=== PATIENT | male | born 1945 | race Caucasian/White ===

== ENCOUNTER → 2017-12-18 | Outpatient (CLI) | payer MEDICARE ==
--- NOTE | 2017-12-18 13:02 | DIREP ---
PROCEDURE:MRI SPINE LUMBAR W/O COMPARISON:[facility], [place], XRAY SPINE LUMBAR 2-3 VWS, 12/11/2017, 03:10 AM. INDICATIONS:M54.17 RADICULOPATHY TECHNIQUE:A comprehensive examination was performed utilizing a variety of imaging planes and imaging parameters to optimize visualization of suspected pathology. Images were performed without intravenous gadolinium contrast. FINDINGS: ALIGNMENT:Normal. VERTEBRA:No fracture, pars defect, or osseous lesion. CORD/CAUDA EQUINA:Normal size, contour, and signal intensity. PARASPINAL AREA:Normal with no visible mass. OTHER:None. LUMBAR DISC LEVELS T12-L1:No significant disc/facet abnormality, spinal stenosis, or foraminal stenosis. L1-L2:No significant disc/facet abnormality, spinal stenosis, or foraminal stenosis. L2-L3:Minimal dorsal bulge, facet arthropathy and thickened ligamentum flavum. No significant spinal stenosis. Minimal foraminal stenosis. L3-L4:Moderate facet arthropathy. Thickened ligamentum flavum. Dorsal bulge. Mild foraminal and spinal stenosis. L4-L5:Severe facet arthropathy. Mild facet joint fluid. Thickened ligamentum flavum. Dorsal bulge. Severe bilateral foraminal stenosis and moderate to severe canal stenosis. L5-S1:Moderate right and mild left facet arthropathy. No significant bulge. No significant spinal or foraminal stenosis. CONCLUSION: 1. Multilevel degenerative changes most prominent at L4-5 as detailed above. Dictated by: Ruben Shepherd M.D. on 12/18/2017 at 12:54 PM
== END | disposition home or self-care (01) ==
LOC: MRI 10:37
PROVIDERS: ATTEND Emergency Medicine
DX: M48.061 Spinal stenosis, lumbar region without neurogenic claudication (principal); M51.26 Other intervertebral disc displacement, lumbar region; M47.896 Other spondylosis, lumbar region; M54.17 Radiculopathy, lumbosacral region; M12.88 Other specific arthropathies, not elsewhere classified, other specified site
CPT/HCPCS: 72148